=== PATIENT | male | born 1975 | race Caucasian/White ===

== ENCOUNTER 2019-05-12 00:31 | Emergency (ER) | payer OTHER ==
[2019-05-12] MEDS: IBUPROFEN 800 MG TAB PO (01:45)
[2019-05-12] MEDS: DIPHTH/TET/ACEL PERTUSS (ADULT) 0.5 ML VIAL IM* (01:45)
[2019-05-12] MEDS: LIDOCAINE 1% (MDV) 20 ML INJ SC (01:51)
[2019-05-12 02:15] LABS: HAAIG REFLEX REFLEX FILED
[2019-05-12] MEDS ORDERED: BACITRACIN 0.9 GM OINT TOP (02:30)
[2019-05-12] MEDS: BACITRACIN 0.5%/ZINC 28.35 GM OINT TOP (02:34)
[2019-05-12] MEDS: AMOXICILLIN/CLAV 875 MG TAB PO (02:34)
[2019-05-12 03:53] LABS: HEPATITIS B SURFACE ANTIGEN NEGATIVE (NEGATIVE)
[2019-05-12 04:10] LABS: HEPATITIS B CORE ANTIBODY NEGATIVE (NEGATIVE); HEPATITIS C VIRAL ANTIBODY NEGATIVE (NEGATIVE)
[2019-05-12 05:21] LABS: HEPATITIS B SURFACE ANTIBODY POSITIVE (NEGATIVE)
== END 2019-05-12 02:59 | disposition home or self-care (01) ==
LOC: FTE 00:31
DX: S61.217A Laceration without foreign body of left little finger without damage to nail, initial encounter (principal); S61.432A Puncture wound without foreign body of left hand, initial encounter; W50.3XXA Accidental bite by another person, initial encounter; Y92.89 Other specified places as the place of occurrence of the external cause; Z23 Encounter for immunization; Z85.47 Personal history of malignant neoplasm of testis
CPT/HCPCS: 12001; 73130-LT; 86703; 86704; 86706; 86708; 86709; 86803; 87340; 87536; 90471; 90715; 99284-25